=== PATIENT | male | born 1975 | race American Indian/Alaskan Native ===

== ENCOUNTER 2016-12-10 06:22 | Emergency (ER) | payer BC, OTHER ==
[2016-12-10 06:32] VITALS: BP 161/106
[2016-12-10 07:14] LABS: Basophils % (Auto) 0.3 % (0.0-1.8); Eosinophils % (Auto) 0.9 % (0.0-4.3); Hematocrit 47.9 % (35.5-45.6); Hemoglobin 15.9 gm/dl (11.8-15.2); Mean Corpuscular HGB Conc 33 % (32-34); Mean Corpuscular Hemoglobin 32 pg (28-32); Mean Corpuscular Volume 96 fl (84-94); Platelet Count 171 K/mm3 (140-440); Red Blood Count 5.01 M/mm3 (3.65-5.03); Red Cell Distribution Width 13.9 % (13.2-15.2); White Blood Count 13.1 K/mm3 (4.5-11.0)
[2016-12-10 07:26] LABS: Albumin 3.8 g/dL (3.9-5); Albumin/Globulin Ratio 1.1 %; BUN/Creatinine Ratio 15.71; Blood Urea Nitrogen 11 mg/dL (9-20); Calcium 9.3 mg/dL (8.4-10.2); Carbon Dioxide 24 mmol/L (22-30); Chloride 101.2 mmol/L (98-107); Glucose 119 mg/dL (75-100); Lipase 25 units/L (13-60); Sodium 138 mmol/L (137-145); Total Protein 7.2 g/dL (6.3-8.2)
[2016-12-10 08:15] LABS: Alanine Aminotransferase 45 units/L (7-56); Alkaline Phosphatase 25 units/L (35-129); Anion Gap 18 mmol/L; Potassium 4.8 mmol/L (3.6-5.0)
[2016-12-10] MEDS ORDERED: ZOFRAN IV ONE (10:38)
[2016-12-10] MEDS ORDERED: MORPHINE IV ONE ×2 (10:38→11:43)
[2016-12-10] MEDS ORDERED: NACL 0.9% 1000 ML 1,000 ML IV ONE (10:38)
[2016-12-10 11:07] LABS: Bilirubin,Urine NEG (Negative); Blood,Urine NEG (Negative); Ketones,Urine NEG (Negative); Leukocyte Esterase,Urine NEG (Negative); Mucus,Urine FEW /HPF; Nitrite,Urine NEG (Negative); Protein,Urine <15 mg/dL mg/dL (Negative); Urobilinogen,Urine < 2.0 mg/dL (<2.0)
[2016-12-10] MEDS ORDERED: LACTATED RINGERS 1,000 ML IV ONE (11:19)
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
--- NOTE | 2016-12-10 13:44 | Cat Scan Report ---
CT of the abdomen and pelvis with IV and oral contrast. History: Abdominal pain with nausea. Findings: The liver, spleen, pancreas, and adrenal glands are normal. The gallbladder has been removed. The kidneys are normal in size and configuration. A subcentimeter cyst is seen in the lower pole of the right kidney. There are no other renal abnormalities. There are no pelvic masses or abnormal fluid collections. The appendix is normal. No mesenteric inflammatory changes are seen. Impression: No significant findings. A tiny right renal cyst is noted. Status post cholecystectomy.
== END 2016-12-10 15:46 | disposition home or self-care (01) ==
LOC: ED 06:22
DX: R10.13 Epigastric pain (principal); J45.909 Unspecified asthma, uncomplicated; G89.29 Other chronic pain; F17.200 Nicotine dependence, unspecified, uncomplicated; F12.90 Cannabis use, unspecified, uncomplicated
CPT/HCPCS: 36415; 74177; 80053; 81001; 82140; 83690; 84484; 85025; 93005; 93010; 96361; 96374; 96375; 96376; 99284; J2270; J2405; J7030; J7120; Q9967